=== PATIENT | female | born 1955 | race Caucasian/White ===

== ENCOUNTER → 2017-06-28 | Outpatient (CLI) | payer MEDICARE, BC ==
--- NOTE | 2017-07-02 08:25 | MM ---
Reason for exam: screening (asymptomatic). Last mammogram was performed 1 year ago. History: Patient is postmenopausal. Family history of breast cancer in mother at age 75 and breast cancer in maternal aunt at age 80. Benign excisional biopsy of the left breast, 1979. Physical Findings: A clinical breast exam by your physician is recommended on an annual basis and results should be correlated with mammographic findings. MG 3D Screening Mammo W/Cad Bilateral CC and MLO view(s) were taken. Prior study comparison: June 13, 2016, bilateral MG 3d screening mammo w/cad. The breast tissue is heterogeneously dense. This may lower the sensitivity of mammography. No significant changes when compared with prior studies. ASSESSMENT: Benign, BI-RAD 2 RECOMMENDATION: Routine screening mammogram of both breasts in 1 year.
== END ==
LOC: RADMAMWWP 10:09
PROVIDERS: ATTEND Obstetrics & Gynecology
DX: Z12.31 Encounter for screening mammogram for malignant neoplasm of breast (principal); Z80.3 Family history of malignant neoplasm of breast
CPT/HCPCS: 77063; G0202

== ENCOUNTER → 2018-07-11 | Outpatient (CLI) | payer MEDICARE, BC ==
--- NOTE | 2018-07-16 11:24 | MM ---
Reason for exam: screening (asymptomatic). Last mammogram was performed 1 year ago. History: Patient is postmenopausal. Family history of breast cancer in mother at age 75 and breast cancer in maternal aunt at age 80. Benign excisional biopsy of the left breast, 1979. Physical Findings: A clinical breast exam by your physician is recommended on an annual basis and results should be correlated with mammographic findings. MG 3D Screening Mammo W/Cad Bilateral CC and MLO view(s) were taken. Prior study comparison: June 28, 2017, bilateral MG 3d screening mammo w/cad. June 13, 2016, bilateral MG 3d screening mammo w/cad. The breast tissue is heterogeneously dense. This may lower the sensitivity of mammography. No significant changes when compared with prior studies. ASSESSMENT: Negative, BI-RAD 1 RECOMMENDATION: Routine screening mammogram of both breasts in 1 year.
== END | disposition home or self-care (01) ==
LOC: RADMAMWWP 10:54
PROVIDERS: ATTEND Obstetrics & Gynecology
DX: Z12.31 Encounter for screening mammogram for malignant neoplasm of breast (principal); Z80.3 Family history of malignant neoplasm of breast
CPT/HCPCS: 77063; 77067

== ENCOUNTER 2018-08-29 08:38 | Day surgery (SDC) | payer MEDICARE, BC ==
[2018-08-26 11:36] VITALS: BMI 28.3
--- NOTE | 2018-08-28 15:53 | HP ---
HISTORY AND PHYSICAL REASON FOR ADMISSION: Surgery is scheduled for 08/29/2018. Jany Sepulveda is a 62-year-old patient seen with progressive right knee pain. Treatment options were discussed with her. She elected to proceed with arthroscopy. Consent was obtained. PAST MEDICAL HISTORY: Hypothyroidism, hypertension. PAST SURGICAL HISTORY: Breast biopsy, right wrist surgery. MEDICATIONS ARE: Cardizem, levothyroxine. ALLERGIES: PENICILLIN. SOCIAL HISTORY: Patient denies current tobacco use. PHYSICAL EXAMINATION: Evaluation of the right knee range of motion is negative to 120 degrees. Mild effusion. Lezama cyst present. Tenderness medial joint line. Positive medial Karl's. Ligaments stable. Hip rotation without pain. Distal neurovascular exam intact.. RADIOGRAPHS: Right knee radiographs revealed moderate medial compartment osteoarthritis. An MRI of the right knee revealed medial and lateral meniscal tears. IMPRESSION: 1. Internal derangement, right knee with medial lateral meniscal tears. 2. Hypertension. 3. Hypothyroidism. PLAN: Right knee arthroscopy with partial meniscectomy and debridement. Surgery is 08/29/18. MMODL / IJN: [id number] /
[~2018-08-29 08:38] MED LIST: ceFAZolin IN SWFI 2 GM/20 ML SYRINGE IVP ONE
[2018-08-29 09:13] VITALS: RESP 16
[2018-08-29] MEDS ORDERED: LIDOCAINE 1% 20 ML VIAL (10MG/ML) FOR IV START INTRADERMA ONE (09:14)
[2018-08-29] MEDS ORDERED: LACTATED RINGERS 1,000 ML IV ONE (09:14)
[2018-08-29] MEDS ORDERED: DEXAMETHASONE SOD PHOS (MDV) 100 MG/10 ML VIAL IV ONE (09:20)
[2018-08-29] MEDS ORDERED: ONDANSETRON 4 MG/2 ML VIAL IVP ONE (09:20)
[2018-08-29] MEDS ORDERED: ePHEDrine SULFATE/0.9% NACL/PF 50 MG/5 ML SYRINGE IV ONE (11:02)
[2018-08-29] MEDS ORDERED: SUCCINYLCHOLINE CHLORIDE 100 MG/5 ML SYR IV ONE (11:02)
[2018-08-29] MEDS ORDERED: fentaNYL (PF) 50 MCG/ML 2 ML AMP ONE (11:02)
[2018-08-29] MEDS ORDERED: MIDAZOLAM 2 MG/2 ML VIAL ONE (11:02)
[2018-08-29] MEDS ORDERED: PROPOFOL 10 MG/ML 20 ML VIAL IV ONE (11:02)
[2018-08-29] MEDS ORDERED: LIDOCAINE 1% INJ 10MG/ML (20 ML MDV) ONE (11:02)
[2018-08-29 11:58] VITALS: TEMP 97
--- NOTE | 2018-08-29 11:58 | P.OP ---
Date of Procedure: 08/29/18 Preoperative Diagnosis: Internal derangement right knee Postoperative Diagnosis: 1. Tear medial and lateral meniscus right knee 2. Grade 4 chondromalacia medial femoral condyle right knee 3. Grade 3 chondromalacia lateral femoral condyle right knee 4. Grade 2 chondromalacia patella right knee 5. Reactive synovitis medial, lateral and suprapatellar compartments right knee Procedure(s) Performed: 1. Arthroscopic partial medial and lateral meniscectomy right knee 2. Arthroscopic chondroplasty medial femoral condyle right knee 3. Arthroscopic chondroplasty lateral femoral condyle right knee 4. Arthroscopic chondroplasty patella right knee 5. Arthroscopic partial synovectomy medial, lateral and suprapatellar compartments right knee Anesthesia: KARENAA, local Surgeon: Rod Bernal Estimated Blood Loss (ml): 5 Pathology: none sent Condition: stable Disposition: PACU Indications for Procedure: 62-year-old patient seen with progressive right knee pain. After treatment options were discussed, she elected to proceed with arthroscopy. Operative Findings: See description of procedure Description of Procedure: Patient was taken to the operative suite. Patient underwent a general anesthetic by the department of anesthesia. Patient was given preoperative antibiotics. The right lower extremity was placed in a well-padded arthroscopic leg yeh. The right leg was prepped and draped in the normal sterile orthopedic fashion. A lateral parapatellar and suprapatellar incision was made. Trochars were inserted. Arthroscopy was initiated. Suprapatellar pouch revealed diffuse thick reactive synovitis. The patellofemoral joint appeared to articulate congruently. There was grade 2 chondromalacia with some osteochondral tears present. The scope was guided into the medial gutter. No loose bodies or plica were identified. The scope was then guided into the medial compartment. A medial parapatellar incision was made. Trocar inserted followed by probe. There was a complex tear involving the posterior horn and midbody medial meniscus. There were grade 4 chondromalacia changes of the medial compartment involving both the femoral condyle and tibial plateau. There were some diffuse osteochondral tears present. There was thick reactive synovitis anteriorly. I performed a partial medial meniscectomy getting down to stable meniscal tissue. I performed a chondroplasty of the medial femoral condyle down to stable tissue. I performed a partial synovectomy decompressing that reactive synovitis. Scope and probe were then guided into the intercondylar notch. Cruciates were identified, probed and found to be stable. The scope and probe were then guided into lateral compartment. There was a radial tear involving the mid body and posterior horn of the lateral meniscus. There were grade 3 chondromalacia changes involving nearly the entire weightbearing surface of the lateral femoral condyle with significant osteochondral tears. There was thick reactive synovitis anteriorly. I performed a partial lateral meniscectomy getting down to stable tissue. I performed a chondroplasty of the lateral femoral condyle down to stable tissue. I performed a partial synovectomy decompressing the reactive synovitis. The residual meniscus was stable. The residual osteochondral surface was stable. There was good decompression synovitis. The scope was in guided back into the suprapatellar compartment. I introduced a motorized shaver into the suprapatellar compartment. I debrided some piecemeal fragments of meniscus I encountered. I performed a chondroplasty of the patella down to stable tissue. I performed a partial synovectomy decompressing the reactive synovitis. The residual osteochondral surface was found to be stable. I took one more look on the entire knee, no residual debris. Instruments were now removed from the joint. The joint was infiltrated with .25% Marcaine. Steri-Strips were applied to the portal sites. Sterile dressings were applied. The patient was placed into a [place] hose. No tourniquet was utilized. The patient was awakened, transferred to a bed and taken to recovery stable satisfactory condition.
[2018-08-29] MEDS: HYDROmorphone 1 MG/ML 1 ML SYRINGE IVP ONE ×4 (12:16→12:39)
[2018-08-29] MEDS ORDERED: KETOROLAC 30 MG/ML 1 ML VIAL IVP ONE (12:30)
[2018-08-29] MEDS ORDERED: traMADol 50 MG TAB PO ONE (14:00)
[2018-08-29 15:15] VITALS: BP 130/72; PULSE 94
== END 2018-08-29 15:32 | disposition home or self-care (01) ==
LOC: OR 08:38
PROVIDERS: ATTEND Orthopaedic Surgery
DX: S83.241A Other tear of medial meniscus, current injury, right knee, initial encounter (principal); S83.281A Other tear of lateral meniscus, current injury, right knee, initial encounter; X58.XXXA Exposure to other specified factors, initial encounter; M22.41 Chondromalacia patellae, right knee; M65.861 Other synovitis and tenosynovitis, right lower leg; M71.21 Synovial cyst of popliteal space [Baker], right knee; I10 Essential (primary) hypertension; E03.9 Hypothyroidism, unspecified; Z79.890 Hormone replacement therapy; Z79.899 Other long term (current) drug therapy; Z09 Encounter for follow-up examination after completed treatment for conditions other than malignant neoplasm; Z88.0 Allergy status to penicillin
CPT/HCPCS: 29880; J2250; J2405; J2001; J3010; J1885; J1170; J1100; J0330; J2704; J0690

== ENCOUNTER → 2019-07-18 | Outpatient (CLI) | payer MEDICARE, BC ==
--- NOTE | 2019-07-22 08:25 | MM ---
Reason for exam: screening (asymptomatic). Last mammogram was performed 1 year ago. History: Patient is postmenopausal. Family history of breast cancer in mother at age 75 and breast cancer in maternal aunt at age 80. Benign excisional biopsy of the left breast, 1979. Physical Findings: A clinical breast exam by your physician is recommended on an annual basis and results should be correlated with mammographic findings. MG 3D Screening Mammo W/Cad Bilateral CC and MLO view(s) were taken. Prior study comparison: July 11, 2018, bilateral MG 3d screening mammo w/cad. June 28, 2017, bilateral MG 3d screening mammo w/cad. The breast tissue is heterogeneously dense. This may lower the sensitivity of mammography. There is chronic nodularity in the right breast medial aspect. There is no discrete abnormality. ASSESSMENT: Benign, BI-RAD 2 RECOMMENDATION: Routine screening mammogram of both breasts in 1 year.
== END | disposition home or self-care (01) ==
LOC: RADMAMWWP 11:04
PROVIDERS: ATTEND Obstetrics & Gynecology
DX: Z12.31 Encounter for screening mammogram for malignant neoplasm of breast (principal); Z80.3 Family history of malignant neoplasm of breast
CPT/HCPCS: 77063; 77067

== ENCOUNTER → 2020-09-27 | Outpatient (CLI) | payer MEDICARE, BC ==
--- NOTE | 2020-09-28 09:37 | MM ---
Reason for exam: screening (asymptomatic). Last mammogram was performed 1 year and 2 months ago. History: Patient is postmenopausal. Family history of breast cancer in mother at age 75 and breast cancer in maternal aunt at age 80. Benign excisional biopsy of the left breast, 1979. Physical Findings: A clinical breast exam by your physician is recommended on an annual basis and results should be correlated with mammographic findings. MG 3D Screening Mammo W/Cad Bilateral CC and MLO view(s) were taken. Prior study comparison: July 18, 2019, bilateral MG 3d screening mammo w/cad. July 11, 2018, bilateral MG 3d screening mammo w/cad. The breast tissue is heterogeneously dense. This may lower the sensitivity of mammography. No significant changes when compared with prior studies. ASSESSMENT: Benign, BI-RAD 2 RECOMMENDATION: Routine screening mammogram of both breasts in 1 year.
== END | disposition home or self-care (01) ==
LOC: RADMAMWWP 10:49
PROVIDERS: ATTEND Obstetrics & Gynecology
DX: Z12.31 Encounter for screening mammogram for malignant neoplasm of breast (principal); Z80.3 Family history of malignant neoplasm of breast
CPT/HCPCS: 77063; 77067

== ENCOUNTER 2020-11-30 08:55 | Day surgery (SDC) | payer MEDICARE, BC ==
[2020-11-25 12:00] VITALS: BMI 28.9
[~2020-11-30 08:55] MED LIST changes: +LACTATED RINGERS 1,000 ML IV SCH; +LIDOCAINE 1% (10MG/ML) FOR IV START INTRADERMA PRN; +MIDAZOLAM 2 MG/2 ML VIAL IV PRN; -ceFAZolin IN SWFI 2 GM/20 ML SYRINGE IVP ONE
[2020-11-30 09:14] VITALS: TEMP 97.8
[2020-11-30] MEDS ORDERED: PROPOFOL 10 MG/ML 20 ML VIAL IV ONE (10:17)
--- NOTE | 2020-11-30 10:48 | P.PCN ---
Date of Procedure: 11/30/20 Procedure(s) Performed: PREOPERATIVE DIAGNOSIS: Change in bowel habits, rectal bleeding, family history of colon cancer POSTOPERATIVE DIAGNOSIS: Ascending colon polyp, diverticulosis PROCEDURE: Colonoscopy with snare polypectomy ANESTHESIA: MAC SURGEON: Chris Mercado M.D. SPECIMENS: Polyp ENDOSCOPIC PROCEDURE: The patient was placed on the endoscopy table in the left decubitus position. The Olympus colonoscope was inserted into the anus and passed under direct visualization to the cecum. I could not pass beyond the valve and I could not see the base of the cecum well. This was despite multiple attempts at body position changes. The scope was slowly withdrawn inspecting all surfaces carefully. In the mid ascending colon a small polyp was seen and removed using the snare with cautery technique. The remainder of the transverse descending sigmoid and rectum appeared normal. There was mild diverticulosis. Digital rectal examination revealed prominent internal and external hemorrhoids without evidence of bleeding. The patient was taken to the recovery room in stable condition per anesthesia guidelines. RECOMMENDATIONS: Await biopsy results. Anticipate follow-up colonoscopy 5 years.
[2020-11-30 11:07] VITALS: BP 119/59; PULSE 68; RESP 16
== END 2020-11-30 11:20 | disposition home or self-care (01) ==
LOC: ORWHC2ENDO 08:55
PROVIDERS: ATTEND Surgery
DX: D12.2 Benign neoplasm of ascending colon (principal); K57.30 Diverticulosis of large intestine without perforation or abscess without bleeding; K64.4 Residual hemorrhoidal skin tags; K64.8 Other hemorrhoids; Z80.0 Family history of malignant neoplasm of digestive organs; M79.7 Fibromyalgia; E07.9 Disorder of thyroid, unspecified; F32.9 Major depressive disorder, single episode, unspecified; Z88.0 Allergy status to penicillin; Z87.891 Personal history of nicotine dependence; Z79.890 Hormone replacement therapy; Z79.899 Other long term (current) drug therapy
CPT/HCPCS: 88305; 45385; J2704

== ENCOUNTER → 2021-11-07 | Outpatient (CLI) | payer MEDICARE, BC ==
--- NOTE | 2021-11-09 11:28 | MM ---
Reason for exam: screening (asymptomatic). Last mammogram was performed 1 year and 1 month ago. History: Patient is postmenopausal. Family history of breast cancer in mother at age 75 and breast cancer in maternal aunt at age 80. Benign excisional biopsy of the left breast, 1979. Physical Findings: A clinical breast exam by your physician is recommended on an annual basis and results should be correlated with mammographic findings. MG 3D Screening Mammo W/Cad Bilateral CC and MLO view(s) were taken. Prior study comparison: September 27, 2020, bilateral MG 3d screening mammo w/cad. July 18, 2019, bilateral MG 3d screening mammo w/cad. The breast tissue is heterogeneously dense. This may lower the sensitivity of mammography. There is chronic nodularity bilaterally. No significant changes when compared with prior studies. ASSESSMENT: Benign, BI-RAD 2 RECOMMENDATION: Routine screening mammogram of both breasts in 1 year. Patient should continue monthly self breast exams. A negative report should not preclude additional follow up of suspicious palpable abnormalities.
== END | disposition home or self-care (01) ==
LOC: RADMAMWWP 15:18
PROVIDERS: ATTEND Obstetrics & Gynecology
DX: Z12.31 Encounter for screening mammogram for malignant neoplasm of breast (principal); Z80.3 Family history of malignant neoplasm of breast
CPT/HCPCS: 77063; 77067

== ENCOUNTER → 2022-11-09 | Outpatient (CLI) | payer MEDICARE, BC ==
--- NOTE | 2022-11-12 12:58 | MM ---
Reason for Exam: Screening (asymptomatic). Last screening mammogram was performed 12 month(s) ago. Patient History: Menarche at age 11. First Full-Term at age 24. Postmenopausal. 1979, Benign Excisional Biopsy on the left side. Maternal aunt had breast cancer, age 80. Mother had breast cancer, age 75. Risk Values: Alba 5 year model risk: 4.0%. NCI Lifetime model risk: 12.5%. Prior Study Comparison: 07/18/2019 Bilateral Screening Mammogram, [facility]. 09/27/2020 Bilateral Screening Mammogram, [facility]. 11/07/2021 Bilateral Screening Mammogram, [facility]. Tissue Density: The breast tissue is heterogeneously dense. This may lower the sensitivity of mammography. Findings: Analyzed By CAD. Chronic bilateral nodularity and areas of asymmetric density which remain unchanged. No significant change from prior exams. Overall Assessment: Benign, BI-RAD 2 Management: Screening Mammogram of both breasts in 1 year. 1. Patient should continue monthly self breast exams. 2. A clinical breast exam by your physician is recommended on an annual basis. 3. This exam should not preclude additional follow-up of suspicious palpable abnormalities. Electronically signed and approved by: Pili Mauricio M.D. Radiologist
== END | disposition home or self-care (01) ==
LOC: RADMAMWWP 11:15
PROVIDERS: ATTEND Internal Medicine Pulmonary Disease
DX: Z12.31 Encounter for screening mammogram for malignant neoplasm of breast (principal); Z78.0 Asymptomatic menopausal state; Z80.3 Family history of malignant neoplasm of breast
CPT/HCPCS: 77063; 77067

== ENCOUNTER → 2023-12-14 | Outpatient (CLI) | payer MEDICARE, BC ==
--- NOTE | 2023-12-17 09:12 | MM ---
Reason for Exam: Screening (asymptomatic). Last mammogram was performed 1 year(s) and 2 month(s) ago. Patient History: Menarche at age 11. First Full-Term at age 24. Postmenopausal. 1979, Benign Excisional Biopsy on the left side. Maternal aunt had breast cancer, age 80. Mother had breast cancer, age 75. Risk Values: Alba 5 year model risk: 4.0%. NCI Lifetime model risk: 11.9%. Prior Study Comparison: 09/27/2020 Bilateral Screening Mammogram, [facility]. 11/07/2021 Bilateral Screening Mammogram, [facility]. 11/09/2022 Bilateral MG 3D screening mammo w/cad, [facility]. Tissue Density: The breast tissue is heterogeneously dense. This may lower the sensitivity of mammography. Findings: Analyzed By CAD. There is no suspicious group of microcalcifications in either breast. Benign-appearing calcifications. Nodular density seen in the posterior central inner aspect right breast. Additional area of nodular density in the central aspect of the right breast on the cc view likely posterior and central on the MLO view. Recommend spot compression view of both areas. Overall Assessment: Incomplete: need additional imaging evaluation, BI-RAD 0 Management: Special View Mammogram of the right breast. . Patient should continue monthly self-breast exams. A clinical breast exam by your physician is recommended on an annual basis. This exam should not preclude additional follow-up of suspicious palpable abnormalities. Note on Alba scores and lifetime risk: 1. A Alba score greater than 3% is considered moderate risk. If this is the case, consider specialist referral to assess eligibility for a risk reducing agent. 2. If overall lifetime risk for the development of breast cancer is 20% or higher, the patient may qualify for future screening with alternating mammogram and breast MRI. Electronically signed and approved by: Arnaud Chaudhary M.D. Radiologis
== END | disposition home or self-care (01) ==
LOC: RADMAMWWP 11:22
PROVIDERS: ATTEND Internal Medicine Pulmonary Disease
DX: Z12.31 Encounter for screening mammogram for malignant neoplasm of breast (principal); Z80.3 Family history of malignant neoplasm of breast; Z78.0 Asymptomatic menopausal state
CPT/HCPCS: 77063; 77067

== ENCOUNTER → 2023-12-19 | Outpatient (CLI) | payer MEDICARE, BC ==
--- NOTE | 2023-12-19 14:05 | MM ---
Reason for Exam: Additional evaluation requested from abnormal screening. Last screening mammogram was performed less than 1 month ago. Patient History: Menarche at age 11. First Full-Term at age 24. Postmenopausal. 1979, Benign Excisional Biopsy on the left side. Maternal aunt had breast cancer, age 80. Mother had breast cancer, age 75. Risk Values: Alba 5 year model risk: 4.0%. NCI Lifetime model risk: 11.9%. Prior Study Comparison: 09/27/2020 Bilateral Screening Mammogram, [facility]. 11/07/2021 Bilateral Screening Mammogram, [facility]. 11/09/2022 Bilateral MG 3D screening mammo w/cad, [facility]. 12/14/2023 Bilateral MG 3D screening mammo w/cad, [facility]. Tissue Density: Right: The breast tissue is heterogeneously dense. This may lower the sensitivity of mammography. Findings: Analyzed By CAD. Stable fibroglandular tissue in the right breast in the area of concern dating back to at least 2016. No new suspicious masses, calcifications or distortions. Overall Assessment: Benign, BI-RAD 2 Management: Screening Mammogram of both breasts in 1 year. Results were given to the patient verbally at the time of exam. Patient should continue monthly self-breast exams. A clinical breast exam by your physician is recommended on an annual basis. This exam should not preclude additional follow-up of suspicious palpable abnormalities. Note on Alba scores and lifetime risk: 1. A Alba score greater than 3% is considered moderate risk. If this is the case, consider specialist referral to assess eligibility for a risk reducing agent. 2. If overall lifetime risk for the development of breast cancer is 20% or higher, the patient may qualify for future screening with alternating mammogram and breast MRI. Electronically signed and approved by: Jonathan Millard DO
== END | disposition home or self-care (01) ==
LOC: RADMAMWWP 10:29
PROVIDERS: ATTEND Internal Medicine Gastroenterology
DX: R92.331 Mammographic heterogeneous density, right breast (principal); Z80.3 Family history of malignant neoplasm of breast; Z78.0 Asymptomatic menopausal state
CPT/HCPCS: 77065; G0279; 77061

== ENCOUNTER → 2025-02-20 | Outpatient (CLI) | payer MEDICARE, BC ==
--- NOTE | 2025-02-20 16:09 | MM ---
Reason for Exam: Screening (asymptomatic). Last mammogram was performed 1 year(s) and 2 month(s) ago. Patient History: Menarche at age 11. First Full-Term at age 24. Postmenopausal. 1979, Benign Excisional Biopsy on the left side. Maternal aunt had breast cancer, age 80. Mother had breast cancer, age 75. Risk Values: Alba 5 year model risk: 4.0%. NCI Lifetime model risk: 11.4%. Prior Study Comparison: 11/09/2022 Bilateral MG 3D screening mammo w/cad, [facility]. 12/14/2023 Bilateral MG 3D screening mammo w/cad, [facility]. 12/19/2023 Right MG 3D work up w/cad RT, [facility]. Tissue Density: The breasts are heterogeneously dense, which may obscure small masses. Findings: Analyzed By CAD. Multiple areas of chronic nodularity and unchanged asymmetric densities redemonstrated in the breasts. There is no suspicious group of microcalcifications or new suspicious mass in either breast. Overall Assessment: Benign, BI-RAD 2 Management: Screening Mammogram of both breasts in 1 year. See note below in regards to the patient's increased 5 year Alba score. Patient should continue monthly self-breast exams. A clinical breast exam by your physician is recommended on an annual basis. This exam should not preclude additional follow-up of suspicious palpable abnormalities. Note on Alba scores and lifetime risk: 1. A Alba score greater than 3% is considered moderate risk. If this is the case, consider specialist referral to assess eligibility for a risk reducing agent. 2. If overall lifetime risk for the development of breast cancer is 20% or higher, the patient may qualify for future screening with alternating mammogram and breast MRI. [facility], , 02/20/2025 4:05 PM. Electronically signed and approved by: Pili Mauricio M.D. Radiologist
== END | disposition home or self-care (01) ==
LOC: RADMAMWWP 09:25
PROVIDERS: ATTEND Internal Medicine Pulmonary Disease
DX: Z12.31 Encounter for screening mammogram for malignant neoplasm of breast (principal); R92.333 Mammographic heterogeneous density, bilateral breasts; Z78.0 Asymptomatic menopausal state; Z80.3 Family history of malignant neoplasm of breast
CPT/HCPCS: 77063; 77067